=== PATIENT | male | born 1960 | race African-American/Black ===

== ENCOUNTER 2016-10-21 11:42 | Outpatient (CLI) | payer OTHER ==
--- NOTE | 2016-10-21 12:29 | XRay Report ---
LEFT ANKLE, 3 views: History: Left ankle pain. Bone mineralization is normal. No acute osseous abnormality or joint pathology is identified. The soft tissues are unremarkable. IMPRESSION: Normal study. LEFT FOOT, 3 views: History: Left foot pain. The bony architecture is intact. Bony alignment is normal. No soft tissue abnormalities are seen. The joint spaces appear preserved. IMPRESSION: Normal left foot.
== END 2016-10-21 11:43 | disposition home or self-care (01) ==
LOC: SPVIMAG 11:42
PROVIDERS: ATTEND Internal Medicine
DX: M25.572 Pain in left ankle and joints of left foot (principal)

== ENCOUNTER 2016-12-03 06:00 | Day surgery (SDC) | payer OTHER ==
[~2016-12-03 06:00] MED LIST: ANCEF/STERILE WATER 2 GM/20 ML IV NR
[2016-12-03] MEDS ORDERED: ZEMURON IV ONE (07:11)
[2016-12-03] MEDS ORDERED: DECADRON ONE ×2 (07:11)
[2016-12-03] MEDS ORDERED: ROBINUL ONE ×2 (07:11→08:20)
[2016-12-03] MEDS ORDERED: ZOFRAN ONE (07:11)
[2016-12-03] MEDS ORDERED: XYLOCAINE MPF 2% ONE (07:11)
[2016-12-03] MEDS ORDERED: DILAUDID ONE (07:13)
[2016-12-03] MEDS ORDERED: SUBLIMAZE ONE (07:13)
[2016-12-03] MEDS ORDERED: DIPRIVAN 10 MG/ML IV ONE (07:13)
--- NOTE | 2016-12-03 07:36 | Anesthesia Consultation ---
Anesthesia Consult and Med Hx Date of service: 12/03/16 - Airway Anesthetic Teeth Evaluation: Good ROM Head & Neck: Adequate Mental/Hyoid Distance: Adequate Mallampati Class: Class II Intubation Access Assessment: Probably Good - Pulmonary Exam CTA: Yes - Cardiac Exam Cardiac Exam: RRR - Pre-Operative Health Status ASA Pre-Surgery Classification: ASA2 Proposed Anesthetic Plan: General - Cardiovascular System Hx Hypertension: Yes (x 4-5 yrs) - Central Nervous System Hx Psychiatric Problems: No - Endocrine Hx Non-Insulin Dependent Diabetes: Yes ("pre-diabetic" takes metformin) - Other Systems Hx Alcohol Use: Yes (occas) Hx Cancer: No - Additional Comments Anesthesia Medical History Comments: high cholesterol
--- NOTE | 2016-12-03 07:36 | Anesthesia Day of Surgery ---
Anesthesia Day of Surgery - Day of Surgery Patient Examined: Yes Patient H&P Reviewed: Yes Patient is NPO: Yes
[2016-12-03] MEDS ORDERED: MARCAINE-EPI 0.25%-1:200,000 INFILTRATI ONE ×2 (07:38→08:57)
[2016-12-03] MEDS ORDERED: PEPCID PO NR (08:00)
[2016-12-03] MEDS ORDERED: VERSED IV NR (08:00)
[2016-12-03] MEDS ORDERED: NACL 0.9% 1000 ML 1,000 ML IV SCH (08:00)
[2016-12-03] MEDS ORDERED: NEOSTIGMINE ONE (08:49)
[2016-12-03] MEDS ORDERED: ePHEDrine SULFATE ONE (08:50)
[2016-12-03] MEDS ORDERED: NACL 0.9% IR ONE (08:57)
[2016-12-03] MEDS ORDERED: NACL 0.9% 1000 ML 1,000 ML ONE (09:13)
--- NOTE | 2016-12-03 09:39 | Operative Report ---
Operative Report Operative Report: Date of procedure: 12/03/2016 Pre-operative diagnosis: Left inguinal hernia Post-operative diagnosis: Same Procedure name(s): Laparoscopic preperitoneal left inguinal hernia repair with mesh Surgeon: Kristi Stevens MD [employer] Supervisor: None Anesthesia: General, 0.25% Marcaine EBL: Minimal Complications: None Instrument Count: Correct Indications: This is a 56-year-old male with a history of a left groin bulge that is progressively gotten worse. Clinical examination was consistent with a left inguinal hernia. He was offered the above-named procedures a possible treatment modality. The risks and benefits of discussed until all questions were answered. He was subsequently brought to the OR. Findings: As above Procedure: The patient was placed supine upon the table after adequate anesthesia was reached. We reviewed the informed consent. The patient was then prepped and draped in the usual sterile fashion. We infiltrated local anesthetic at the level of the umbilicus. A 1 cm incision was made. Dissection was carried down to the anterior layer of the rectus sheath. This was incised using a 15 blade. The rectus muscles identify retract and laterally. We then inserted a Covidian oval balloon dissector into the pre- peritoneal space. This was inflated. We were clearly able to see the pubic arch as well as the epigastric vessels without difficulty. The balloon was then deflated and substituted for a 10 mm balloon tipped trocar. The preperitoneal space was insufflated a 10 mm mercury. We placed 2 5mm ports both in the midline after infiltration of local anesthetic. This was performed under direct vision. We began our dissection on the left and dissected free the hernia sac from the cord structures. Both the gonadal vessels and the vas deferens were identified and preserved. We then inserted a medium Bard 3-D Max left sided medium mesh into the preperitoneal space. This was secured medially to Rpadeep's ligament using a Protack device and superiorly and laterally to the anterior abdominal wall. Care was taken to avoid the iliopubic tract. We good coverage of all hernia spaces. We then evacuated the insufflation. Removed all ports, and closed all port sites using a 4-0 Monocryl in a subcuticular fashion. The patient tolerated the procedure well was awakened, extubated, and transferred to PACU in no apparent distress.
--- NOTE | 2016-12-03 09:42 | Short Stay Summary ---
Short Stay Documentation Date of service: 12/03/16 - History H&P: obtained from office - Allergies and Medications Current Medications: Allergies No Known Allergies Allergy (Unverified 12/02/16 09:44) Home Medications Medication Instructions Recorded Confirmed Last Taken Type Losartan [Cozaar] 50 mg PO QDAY 12/02/16 12/03/16 12/03/16 05:30 History [place]-3 Fatty Acids/Fish Oil [Fish 1,200 unit PO DAILY 12/02/16 12/03/16 18:30 History Oil] Simvastatin [Zocor TAB] 20 mg PO QHS 12/02/16 12/03/16 12/02/16 18:30 History metFORMIN [Glucophage] 500 mg PO QDAY 12/02/16 12/03/16 12/02/16 18:30 History Active Medications Cefazolin Sodium (Ancef/Sterile Water 2 Gm/20 Ml) 2 gm IV PREOP NR Stop: 12/03/16 23:59 Famotidine (Pepcid) 20 mg PO PREOP NR Stop: 12/03/16 23:59 Last Admin: 12/03/16 07:34 Dose: 20 mg Sodium Chloride (Nacl 0.9% 1000 Ml) 1,000 mls @ 75 mls/hr IV DIRECT SUDARSHAN Last Admin: 12/03/16 07:35 Dose: 75 mls/hr Midazolam HCl (Versed) 2 mg IV PREOP NR Stop: 12/03/16 23:59 Last Admin: 12/03/16 07:35 Dose: 2 mg - Brief post op/procedure progress note Date of procedure: 12/03/16 Pre-op diagnosis: Date of procedure:[] Post-op diagnosis: same Procedure: Laparoscopic left inguinal hernia repair with mesh Anesthesia: ANA, local Surgeon: ARTHUR SANTIAGO Estimated blood loss: minimal Pathology: none Condition: stable - Disposition Condition at discharge: Stable Disposition: DC-01 TO HOME OR SELFCARE Short Stay Discharge Plan Activity: other (no lifting greater than 25 pounds for 2 weeks) Diet: regular Wound: keep clean and dry Follow up with: SERENITY LANCE MD [Primary Care Provider] - 7 Days ARTHUR SANTIAGO MD [Staff Physician] - 7 Days Prescriptions: oxyCODONE /ACETAMINOPHEN [Percocet 5/325] 1 tab PO Q6HR PRN #30 tablet PRN Reason: Pain
[2016-12-03] MEDS ORDERED: DILAUDID IV PRN (09:56)
[2016-12-03] MEDS ORDERED: TRIPLE ANTIBIOTIC TP ONE (09:57)
[2016-12-03] MEDS ORDERED: PERCOCET 5/325 PO ONE (11:59)
[2016-12-03 15:42] VITALS: BP 115/76
== END 2016-12-03 06:01 | disposition home or self-care (01) ==
LOC: OR 06:00
PROVIDERS: ATTEND Surgery
DX: K40.90 Unilateral inguinal hernia, without obstruction or gangrene, not specified as recurrent (principal); I10 Essential (primary) hypertension; E11.9 Type 2 diabetes mellitus without complications; E78.00 Pure hypercholesterolemia, unspecified; Z79.899 Other long term (current) drug therapy; Z79.84 Long term (current) use of oral hypoglycemic drugs; Z79.82 Long term (current) use of aspirin; Z98.890 Other specified postprocedural states; Z72.89 Other problems related to lifestyle
CPT/HCPCS: 49650; 82962; C1726; C1781; J0690; J1170; J2250; J2405; J2704; J2710; J3010; J7030; A6250; J1100